=== PATIENT | female | born 1965 | race Caucasian/White ===

== ENCOUNTER → 2020-08-20 | Outpatient (CLI) | payer BC | LOC: KOH-I 07-28 15:00 | DX: G43.909 Migraine, unspecified, not intractable, without status migrainosus (principal) | CPT/HCPCS: 70450 ==

== ENCOUNTER → 2020-11-13 | Outpatient (CLI) | payer BC | LOC: KOH-I 11:23 | DX: M54.2 Cervicalgia (principal) | CPT/HCPCS: 72050 ==

== ENCOUNTER 2021-01-05 16:30 | Emergency (ER) | payer BC ==
[2021-01-05 17:54] LABS: HEMOGLOBIN 14.1 gm/dl (12.3-15.3); RED BLOOD COUNT 4.57 M/UL (4.00-5.10); WHITE BLOOD COUNT 8.9 K/UL (4.5-11.0)
[2021-01-05 18:18] LABS: BUN/CREATININE RATIO 22 (0-10)
[2021-01-05] MEDS ORDERED: MECLIZINE HCL25 MG PO (20:58)
== END 2021-01-05 21:14 | disposition home or self-care (01) ==
LOC: ER1 16:30
PROVIDERS: Physician Assistant
DX: R55 Syncope and collapse (principal); R42 Dizziness and giddiness; E11.9 Type 2 diabetes mellitus without complications; I10 Essential (primary) hypertension; Z88.0 Allergy status to penicillin
CPT/HCPCS: 70160; 70450; 71045; 80053; 81001; 82550; 82553; 83735; 83874; 84484; 85025; 93005; 99284

== ENCOUNTER → 2021-01-07 | Outpatient (CLI) | payer BC ==
[~2021-01-07] MED LIST: MECLIZINE HCL25 MG PO
== END ==
LOC: HEART 5 10:50
DX: I44.7 Left bundle-branch block, unspecified (principal); E11.9 Type 2 diabetes mellitus without complications; I10 Essential (primary) hypertension; E78.5 Hyperlipidemia, unspecified
CPT/HCPCS: 93306